=== PATIENT | male | born 1990 | race Caucasian/White ===

== ENCOUNTER 2023-07-18 14:40 | Outpatient (RCR) | payer BC, SELFPAY ==
--- NOTE | 2023-07-18 15:32 | OTOPEVAL1 ---
Assessment and note entered by Jean-Pierre Jolley, ROSINA/Demetrio, CHT Evaluation Information Assessment Status Evaluation Subjective Information Patient was working out when he felt a sudden shooting pain in the right arm/elbow area that radiated up toward the elbow. This happened about the 1st week of Jun. The pain has mostly subsided, but there has been some lingering discomfort in the elbow. Describes the pain as a dull ache, like he's hit his funny bone. 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 Reported Pain Level Pain Score 2: Self Report Assessment OT Clinical Summary Patient presents to outpatient OT with right elbow pain. 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 Spent a considerable amount of time educating on UE positioning to reduce further repeated compression of the nerve, educated on ulnar nerve flossing, as well as proximal stretching. Plan for the patient to complete this home program x1 month and follow up to assess for progression of his HEP. Plan of Care Interventions Therapeutic Exercise OT Services Indicated Yes Treatment Frequency and Follow up in 1 month Duration These treatments will address the objective and functional deficits as defined above. The patient will be advanced safely and appropriately in order for the patient to progress towards his/her prior level of function. Additional exercises will be introduced and as well as a comprehensive home exercise program upon discharge, if needed, ?to ensure carryover of functional gains achieved in the clinic. This treatment plan has been reviewed and agreement upon by the patient.
--- NOTE | 2023-07-18 15:32 | OPREHPOC ---
Outpatient Therapy Plan of Care This is a Multidisciplinary Plan of Care that may contain components documented by all disciplines (PT, OT, and ST.) OT Problem 1 OT Problem #1 Knowledge Deficit OT Goal 1 Goal 1. Patient to be independent with instructed materials. Target Visit 2 OT Problem 2 OT Problem #2 Pain OT Goal 1 Goal 1. Patient to report no pain in the right UE. Target Visit 2
--- NOTE | 2023-08-13 14:26 | OTOPDC ---
Assessment and note entered by ROSINA Cannon/Demetrio, T Discharge Note 08/13/23 OT Clinical Summary Patient initially referred to OT with right elbow pain. 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 Spent a considerable amount of time educating on UE positioning to reduce further repeated compression of the nerve, educated on ulnar nerve flossing, as well as proximal stretching. Follow up was scheduled for next week, however on the phone today, patient reports that he is doing well, no longer having elbow pain, and does not feel the need to come in for a formal re-assessment. Discharging today.
== END 2023-08-13 15:47 | disposition home or self-care (01) ==
LOC: ANHGOSHOT 14:40
PROVIDERS: PCP Family Medicine; Visit Provider Family Medicine
DX: M25.521 Pain in right elbow (principal)
CPT/HCPCS: 97110; 97166

== ENCOUNTER 2024-01-14 10:17 | Outpatient (CLI) | payer BC, SELFPAY ==
[2024-01-14 18:50] LABS: Basophils Percent Auto 0.4 % (0.2-1.2); Eosinophils Absolute Auto 0.3 K/mm3 (0-0.3); Eosinophils Percent Auto 4.4 % (0-4.4); Hematocrit 51.9 % (42.0-52.0); Hemoglobin 16.7 g/dL (14.0-18.0); Immature Granulocyte Absolute 0.01 K/mm3 (0.00-0.031); Immature Granulocyte Percent A 0.1 % (0-0.5); Lymphocytes Absolute Auto 2.72 K/mm3 (0.9-3.2); Lymphocytes Percent Auto 35.6 % (18.3-44.2); Mean Corpuscular HGB Conc 32.2 g/dl (32-36); Mean Corpuscular Hemoglobin 28.1 pg (26-34); Mean Corpuscular Volume 87.4 fl (80-100); Mean Platelet Volume 11.3 fl (7.4-10.4); Monocytes Absolute Auto 0.7 K/mm3 (0.1-0.6); Monocytes Percent Auto 9.4 % (2.6-8.5); Neutrophils Absolute Auto 3.8 K/mm3 (1.3-6.7); Neutrophils Percent Auto 50.1 % (45.5-73.1); Platelet Count Result 294 k/mm3 (150-375); Red Blood Count 5.94 M/mm3 (4.6-6.20); White Blood Count 7.7 K/mm3 (4.5-10.0)
[2024-01-14 19:00] LABS: Alanine Aminotransferase 97 U/L (6-50); Albumin Level 4.7 g/dL (3.5-5.1); Alkaline Phosphatase 64 U/L (38-126); Anion Gap 5 mmol/L (8-16); Aspartate Amino Transferase 78 U/L (17-59); Bilirubin,Total 1.9 mg/dL (0.2-1.3); Blood Urea Nitrogen 13 mg/dL (9-20); Calcium 9.4 mg/dL (8.4-10.2); Carbon Dioxide 32 mmol/L (22-30); Chloride 102 mmol/L (98-107); Cholesterol 159 mg/dL (0-200); Estimated Glomerular Filt Rate > 60; Glucose 117 mg/dL (65-110); HDL Direct 39 mg/dL; Potassium 4.7 mmol/L (3.4-5.0); Sodium 139 mmol/L (137-145); Triglycerides 115 mg/dL (<150)
[2024-01-14 19:11] LABS: LDL Cholesterol Direct 106 mg/dL
[2024-01-14 19:49] LABS: Vitamin D 25 Hydroxy 62.8 ng/mL
[2024-01-14 20:01] LABS: Creatinine Urine 26.6 mg/dL
[2024-01-14 20:14] LABS: MALB Creatinine Ratio < 22.6 mg/g (0-30); Microalbumin Urine Random < 6.0 mg/L (0-16.7)
[2024-01-14 20:22] LABS: Hemoglobin A1C 6.1 % (<5.7)
== END 2024-01-14 10:18 | disposition home or self-care (01) ==
LOC: ANHGOSHLAB 10:18
PROVIDERS: PCP Family Medicine; Visit Provider Family Medicine
DX: E55.9 Vitamin D deficiency, unspecified (principal); R53.83 Other fatigue; Z13.220 Encounter for screening for lipoid disorders; Z13.228 Encounter for screening for other metabolic disorders; E11.9 Type 2 diabetes mellitus without complications
CPT/HCPCS: 36415; 80053; 80061; 82043; 82306; 83036; 85025

== ENCOUNTER 2024-01-31 10:15 | Outpatient (CLI) | payer BC, SELFPAY ==
--- NOTE | ~2024-01-31 | US_ITS ---
US abdomen limited INDICATION: Abnormal levels of serum enzymes PROCEDURE: Realtime right upper abdominal ultrasound. COMPARISON: No prior studies for comparison. FINDINGS: The pancreas is normal without focal mass or pancreatic ductal dilation. Echotexture is in creased, consistent with fatty infiltration. There is normal directional flow in the portal vein. There are gallstones. Common bile duct measures 3 mm. No sonographic Grace's sign. IMPRESSION: 1: Cholelithiasis. 2: Fatty infiltration of the liver. Reviewed, dictated and finalized at location B.
== END 2024-01-31 10:16 ==
LOC: MICIMG 10:15
PROVIDERS: PCP Family Medicine; Visit Provider Family Medicine
DX: K80.20 Calculus of gallbladder without cholecystitis without obstruction (principal); K76.0 Fatty (change of) liver, not elsewhere classified
CPT/HCPCS: 76705

== ENCOUNTER 2024-03-25 18:23 | Emergency (ER) | payer BC, SELFPAY ==
[2024-03-25 18:24] VITALS: BP 143/97; PULSE 105; RESP 18; TEMP 36.4; O2SAT 100
--- NOTE | 2024-03-25 18:40 | ED.GENADULT ---
[facility] - General Adult General Chief complaint: Unspecified Stated complaint: hemorrhoid burst Time Seen by Provider: 03/25/24 18:38 Source: patient Mode of arrival: ambulatory Limitations: no limitations History of Present Illness HPI narrative: This is a 33-year-old male who presents to the ED with chief complaint of rectal bleeding that occurred today. Patient reports that he had a bowel movement and noticed bright red blood on the toilet paper when he wiped. States that he has several times today and continues to have bright red blood. He reports he has had a hemorrhoid in the past feels that he probably have a hemorrhoid worse today. Denies significant pain but has noticed the swelling for the past few days. Denies fevers, chills diarrhea, constipation, nausea vomiting. Has tried preparation H with minimal relief Related Data Home Medications Medication Instructions Recorded Confirmed cetirizine 10 mg tablet 10 mg PO DAILY PRN 07/09/23 01/21/24 magnesium glycinate 100 mg tablet 100 mg PO DAILY 07/09/23 01/21/24 multivitamin (Daily Multi-Vitamin 1 tablet PO DAILY 07/09/23 01/21/24 tablet) Allergies Allergy/AdvReac Type Severity Reaction Status Date / Time No Known Allergies Allergy Verified 03/25/24 18:23 Review of Systems Review of Systems: All systems as dictated in [facility] Past Medical History Medical History Allergies Diabetes History of frequent headaches Surgical History Surgical History [place] teeth extracted (~2010) Family History Family History Father Skin cancer Hypertension Diabetes mellitus Heart disease Mother Hypertension Diabetes mellitus Lung cancer Grandparent Breast cancer Hypertension Cerebrovascular accident Social History Social History Social History: caffeine 1 cup coffee 5/7 days a week Smoking status: Never smoker Alcohol intake: current Drinks per week: 2 Substance use: never Substance use type: does not use Lack of Transportation: No Lack of Food: Never True Current Housing: I Have Housing Concerned About Future Housing: No Difficulty Paying Gas/Electric Bills: No Difficulty Paying for Meds: No Currently Unemployed: No Education: Bachelor's Degree Difficulty w/ Childcare or Family Care: No Living arrangements: alone Occupation/Education: occupation Additional occupation/education comments: [employer] Gender identity (if verbalized by the patient): Male Agree to blood products: Yes Exam Narrative: GENERAL: Well-appearing, well-nourished, and in no acute distress. HEAD: Normocephalic, atraumatic. EYES: PERRLA and EOMI. ENT: Nares clear, no rhinorrhea or epistaxis. Mucous membranes moist. Oropharynx without tonsillar hypertrophy exudate or other lesions. NECK: Supple. No adenopathy or masses. CHEST: No respiratory distress. Clear to auscultation. No wheezes rales or rhonchi HEART: Regular rate and rhythm. No murmur heard. Normal peripheral pulses. ABDOMEN: Soft, nontender, nondistended, normal active bowel sounds. MSK: Normal range of motion. No edema. SKIN: Warm, dry, no rash. NEURO: Alert and oriented x3. No focal deficits. PSYCH: Normal mood and affect. : Patient deferred rectal exam Course Vital Signs Vital signs: Vital Signs Temperature 97.6 F 03/25/24 18:24 Pulse Rate 105 H 03/25/24 18:24 Respiratory Rate 18 03/25/24 18:24 Blood Pressure 143/97 H 03/25/24 18:24 Pulse Oximetry 100 03/25/24 18:24 Oxygen Delivery Room Air 03/25/24 18:24 Temperature 97.6 F 03/25/24 18:24 Pulse Rate 86 03/25/24 19:13 Respiratory Rate 16 03/25/24 19:13 Blood Pressure 143/97 H 03/25/24 18:24 Pulse Oximetry 100 03/25/24 19:13 Oxygen
[2024-03-25 19:13] VITALS: PULSE 86; RESP 16; O2SAT 100
== END 2024-03-25 19:14 | disposition home or self-care (01) ==
PROVIDERS: Emergency Provider Physician Assistant; PCP Family Medicine
DX: K62.5 Hemorrhage of anus and rectum (principal); E11.9 Type 2 diabetes mellitus without complications; Z79.85 Long-term (current) use of injectable non-insulin antidiabetic drugs; Z79.84 Long term (current) use of oral hypoglycemic drugs
CPT/HCPCS: 99283

== ENCOUNTER 2024-07-24 15:43 | Outpatient (CLI) | payer BC, SELFPAY ==
[2024-07-24 18:29] LABS: Hemoglobin A1C 5.1 % (<5.7)
[2024-07-24 18:30] LABS: Alanine Aminotransferase 42 U/L (6-50); Albumin Level 4.8 g/dL (3.5-5.1); Alkaline Phosphatase 57 U/L (38-126); Anion Gap 12 mmol/L (4-12); Aspartate Amino Transferase 31 U/L (17-59); Bilirubin,Total 2.5 mg/dL (0.2-1.3); Blood Urea Nitrogen 9 mg/dL (9-20); Calcium 9.1 mg/dL (8.4-10.2); Carbon Dioxide 27 mmol/L (22-30); Chloride 98 mmol/L (98-107); Estimated Glomerular Filt Rate > 60; Glucose 77 mg/dL (65-110); Potassium 4.4 mmol/L (3.4-5.0); Sodium 137 mmol/L (137-145)
== END 2024-07-24 15:44 | disposition home or self-care (01) ==
LOC: ANHGOSHLAB 15:43
PROVIDERS: PCP Family Medicine; Visit Provider Family Medicine
DX: E11.9 Type 2 diabetes mellitus without complications (principal); Z13.228 Encounter for screening for other metabolic disorders
CPT/HCPCS: 36415; 80053; 83036

== ENCOUNTER 2024-12-28 10:23 | Outpatient (CLI) | payer BC, SELFPAY ==
--- OUTSIDE RECORDS SUMMARY | 2024-12-28 11:43 | XMS_ITS | Patient Health Summary ---
Author Organization [facility] Address [address] [place] [address] Care Team Providers Care Recharger Name Role Phone Saravanan Meza MD Primary Care Provider [phone] Note from [facility],non-owned Affiliates and Associated Physician Practices is amultiple site organization consisting of ambulatory clinics and hospital sitesin [place], [place], [place] and [place]. This disclosure is being madepursuant to the Care Everywhere program and may not contain all information available regarding this patient. Last updated 18.[facility] Allergies No known active allergies Immunizations * INFLUENZA VACCINE, QUADR. (FLUZONE; FLULAVAL; FLUARIX; AFLURIA QUADRIVALENT; 6MO+), 0.5 ML (IIV4)(Given 10/04/2018) Social History Tobacco Use Types Packs/Day Years Used Date Smoking Tobacco: Never Assessed Sex and Gender Information Value Date Recorded Sex Assigned at Not on file Gender Identity Not on file Sexual Orientation Not on file Care Teams Recharger Relationship Specialty Start Date End Date Saravanan Meza MD [address] [place] [address] PCP - General Family Medicine 10/04/18
--- OUTSIDE RECORDS SUMMARY | 2024-12-28 11:43 | XMS_ITS | Data Portability ---
Author Organization [facility] [employer], Main Office Address [address] [place] [address] Assessment No assessment recorded. Plan of Treatment Reminders Order Date Submit Date Provider Last Modified By Organization Details Last Modified Time Details Appointments None recorded. Lab hemoglobin A1C, fingerstick 2022 023 [facility] [address], [place], [address], 3 10:10:56 microalbumi n, urine 2022 023 [facility] (Lab), [address] [place], [address], 3 14:20:22 lipid panel, serum 2022 023 [facility] (Lab), [address] [place], [address], 3 13:42:54 CMP, serum or plasma 2022 023 [facility] (Lab), [address] [place], [address], 3 13:43:06 Referral None recorded. Procedures None recorded. Surgeries None recorded. Imaging None recorded. Medication Orders None recorded. Patient TargetsNo targets recorded. Patient InstructionsNo instructions recorded. Reason for Referral None Reported. Results Created Date Observation Date Name Description Value Unit Range Abnormal Flag Note LastModifiedBy Organization Detail LastModifiedTime 01/13/20 22 01/12/2022 hemog lobin A1C, finge rstic k HgbA1C 14% Not Available [facility] [address], [place], [address], 01/12/2022 11:40:31 07/17/20 22 07/17/2022 COMPR EHENS ALLEN METAB OLIC PANEL sodium 139 mmol/ L 137-14 5 Not Available [facility] (Lab) [address] [place], [address], 07/17/2022 13:14:52 07/17/20 22 07/17/2022 COMPR EHENS ALLEN METAB OLIC PANEL potassium 4.7 mmol/ L 3.5-5. 1 Not Available [facility] (Lab) [address] [place], [address], 07/17/2022 13:14:52 07/17/20 22 07/17/2022 COMPR EHENS ALLEN METAB OLIC PANEL chloride 102 mmol/ L 98-107 Not Available [facility] (Lab) [address] [place], [address], 07/17/2022 13:14:52 07/17/20 22 07/17/2022 COMPR EHENS ALLEN METAB OLIC PANEL carbon dioxide 26 mmol/ L 22-30 Not Available [facility] (Lab) [address] [place], [address], 07/17/2022 13:14:52 07/17/20 22 07/17/2022 COMPR EHENS ALLEN METAB OLIC PANEL anion gap 15.7 mmol/ L 14-22 Not Available [facility] (Lab) [address] [place], [address], 07/17/2022 13:14:52 07/17/20 22 07/17/2022 COMPR EHENS ALLEN METAB OLIC PANEL glucose 111 mg/dL 70-99 high Not Available [facility] (Lab) [address] [place], [address], 07/17/2022 13:14:52 07/17/20 22 07/17/2022 COMPR EHENS ALLEN METAB OLIC PANEL BUN 11 mg/dL 8-19 Not Available [facility] (Lab) [address] [place], [address], 07/17/2022 13:14:52 07/17/20 22 07/17/2022 COMPR EHENS ALLEN METAB OLIC PANEL creatinine 0.87 mg/dL 0.66-1 .25 Not Available [facility] (Lab) [address], [place], [address], 07/17/2022 13:14:52 07/17/20 22 07/17/2022 COMPR EHENS ALLEN METAB OLIC PANEL GFR >60 Refer ence Range : [place] ge GFR Healt hy Adult : >60 mL/mi n/1.7 3 m2 Chron ic Kidne y Disea se: 15-60 mL/mi n/1.7 3 m2 Kidne y Failu re: <15/m L/min /1.73 m2 www.n iddk. nih.g ov The MDRD study equat ion has not been valid ated in child amina <18 years of age; pregn ant women ; the elder ly >85 years of age; or in some racia l or ethni c subgr oups, such as [facility] nics. Outsi de the valid ated kate eters , estim ated GFR is less accur ate, requi ring clini agnes judgm ent on a case- by-ca se basis . Clini agnes inter preta tion for other races and ages must be made by the clini tashi. The MDRD study equat ion has not been valid ated for the evalu ation of serum creat inine relat ed to nutri douglas l statu s or medic ation usage . For perso ns <18 years of age, a pedia tric GFR calcu lator is avail able on the F websi te: https ://carmen w.rich young.o rg/pr ofess ional s/kdo qi/gf r_cal culat or Not Available [facility] (Lab) [address] [place], [address], 07/17/2022 13:14:52 07/17/20 22 07/17/2022 COMPR EHENS ALLEN METAB OLIC PANEL alkaline phosphatase 57 U/L 38-[address] [facility] (Lab) [address] [place], [address], 07/17/2022 13:14:52 07/17/20 22 07/17/2022 COMPR EHENS ALLEN METAB OLIC PANEL alanine aminotransfe rase 36 U/L 0-50 Not Available [facility] (Lab) [address] [place], [address], 07/17/2022 13:14:52 07/17/20 22 07/17/2022 COMPR EHENS ALLEN METAB OLIC PANEL aspartate aminotransfe rase 26 U/L 15-46 Not Available [facility] (Lab) [address] [place], [address], 07/17/2022 13:14:52 07/17/20 22 07/17/2022 COMPR EHENS ALLEN METAB OLIC PANEL bilirubin, total 1.40 mg/dL 0.20-1 .30 high Not Available [facility] (Lab) [address] [place], [address], 07/17/2022 13:14:52 07/17/20 22 07/17/2022 COMPR EHENS ALLEN METAB OLIC PANEL calcium 9.4 mg/dL 8.4-10 .2 Not Available [facility] (Lab) [address] [place], [address], 07/17/2022 13:14:52 07/17/20 22 07/17/2022 COMPR EHENS ALLEN METAB OLIC PANEL total protein 7.6 g/dL 6.3-8. 2 Not Available [facility] (Lab) [address] [place], [address], 07/17/2022 13:14:52 07/17/20 22 07/17/2022 COMPR EHENS ALLEN METAB OLIC PANEL albumin 4.8 g/dL 3.4-5. 0 Not Available [facility] (Lab) [address] [place], [address], 07/17/2022 13:14:52 07/17/20 22 07/17/2022 COMPR EHENS ALLEN METAB OLIC PANEL globulin 2.8 g/dL 2.6-4. 2 Not Available [facility] (Lab) [address] [place], [address], 07/17/2022 13:14:52 07/17/20 22 07/17/2022 COMPR EHENS ALLEN METAB OLIC PANEL A/G ratio 1.7 ratio 1.0-2. 0 Not Available [facility] (Lab) [address] [place], [address], 07/17/2022 13:14:52 07/17/20 22 07/17/2022 LIPID PANEL cholesterol 230 mg/dL 140-19 9 high NIH JACY NSUS RECOM MENDA TION FOR RAMONITA STERO L: ADULT CHILD LOW RISK: <200 <170 BORDE RLINE : <200- 239 ----- HIGH RISK: >240 >200 Not Available [facility] (Lab) [address] [place], [address], 07/17/2022 13:14:46 07/17/20 22 07/17/2022 LIPID PANEL triglyceride s 139 mg/dL 0-150 NIH JACY NSUS REPOR T RECOM MENDA TION FOR TRIGL YCERI OLGA: ADULT CHILD LOW RISK: <150 ----- BODER LINE: 150-1 99 ----- HIGH RISK: >200 ----- Not Available [facility] (Lab) [address] [place], [address], 07/17/2022 13:14:46 07/17/20 22 07/17/2022 LIPID PANEL HDL cholesterol 41 mg/dL 40- Not Available [facility] (Lab) [address] [place], [address], 07/17/2022 13:14:46 07/17/20 22 07/17/2022 LIPID PANEL LDL cholesterol, calculated 161 mg/dL 0-130 high NIH JACY NSUS REPOR T RECOM MENDA TIONS FOR LDL: ADULT CHILD LOW RISK <130 <110 (OPTI MAL LDL) <100 ----- BORDE RLINE : 130-1 59 ----- HIGH RISK: >160 >130 A TRIGL YCERI DE RESUL T >400 INVAL IDATE S THE CALCU LATIO N FOR LDL FRACT IONAT ION - THE LDL RESUL T WILL NOT BE REPOR ISABEL. Not Available [facility] (Lab) [address] [place], [address], 07/17/2022 13:14:46 10/16/20 22 10/16/2022 hemog lobin A1C, finge rstic k HgbA1C 5.8 Not Available [facility] [address], [place], [address], 10/16/2022 10:13:42 04/16/20 23 04/16/2023 LIPID PANEL cholesterol 145 mg/dL 140-19 9 NIH JACY NSUS RECOM MENDA TION FOR RAMONITA STERO L: ADULT CHILD LOW RISK: <200 <170 BORDE RLINE : <200- 239 ----- HIGH RISK: >240 >200 Not Available [facility] (Lab) [address] [place], [address], 04/16/2023 13:42:54 04/16/20 23 04/16/2023 LIPID PANEL triglyceride s 107 mg/dL 0-150 NIH JACY NSUS REPOR T RECOM MENDA TION FOR TRIGL YCERI OLGA: ADULT CHILD LOW RISK: <150 ----- BODER LINE: 150-1 99 ----- HIGH RISK: >200 ----- Not Available [facility] (Lab) [address] [place], [address], 04/16/2023 13:42:54 04/16/2004/16/2023 LIPID PANEL HDL cholesterol 39 mg/dL 40- low Not Available [facility] (Lab) [address] [place], [address], 04/16/2023 13:42:54 04/16/2004/16/2023 LIPID PANEL LDL cholesterol, calculated 85 mg/dL 0-130 NIH JACY NSUS REPOR T RECOM MENDA TIONS FOR LDL: ADULT CHILD LOW RISK <130 <110 (OPTI MAL LDL) <100 ----- BORDE RLINE : 130-1 59 ----- HIGH RISK: >160 >130 A TRIGL YCERI DE RESUL T >400 INVAL IDATE S THE CALCU LATIO N FOR LDL FRACT IONAT ION - THE LDL RESUL T WILL NOT BE REPOR ISABEL. Not Available [facility] (Lab) [address] [place], [address], 04/16/2023 13:42:54 04/16/2004/16/2023 COMPR EHENS ALLEN METAB OLIC PANEL sodium 139 mmol/ L 137-14 5 Not Available [facility] (Lab) [address] [place], [address], 04/16/2023 13:43:05 04/16/20 23 04/16/2023 COMPR EHENS ALLEN METAB OLIC PANEL potassium 4.7 mmol/ L 3.5-5. 1 Not Available [facility] (Lab) [address] [place], [address], 04/16/2023 13:43:05 04/16/20 23 04/16/2023 COMPR EHENS ALLEN METAB OLIC PANEL chloride 100 mmol/ L 98-107 Not Available [facility] (Lab) [address] [place], [address], 04/16/2023 13:43:05 04/16/20 23 04/16/2023 COMPR EHENS ALLEN METAB OLIC PANEL carbon dioxide 26 mmol/ L 22-30 Not Available [facility] (Lab) [address] [place], [address], 04/16/2023 13:43:05 04/16/20 23 04/16/2023 COMPR EHENS ALLEN METAB OLIC PANEL anion gap 17.7 mmol/ L 14-22 Not Available [facility] (Lab) [address] [place], [address], 04/16/2023 13:43:05 04/16/20 23 04/16/2023 COMPR EHENS ALLEN METAB OLIC PANEL glucose 109 mg/dL 70-99 high Not Available [facility] (Lab) [address] [place], [address], 04/16/2023 13:43:05 04/16/20 23 04/16/2023 COMPR EHENS ALLEN METAB OLIC PANEL BUN 13 mg/dL 8-19 Not Available [facility] (Lab) [address] [place], [address], 04/16/2023 13:43:05 04/16/20 23 04/16/2023 COMPR EHENS ALLEN METAB OLIC PANEL creatinine 0.88 mg/dL 0.66-1 .25 Not Available [facility] (Lab) [address] [place], [address], 04/16/2023 13:43:05 04/16/20 23 04/16/2023 COMPR EHENS ALLEN METAB OLIC PANEL GFR >60 Refer ence Range : [place] ge GFR Healt hy Adult : >60 mL/mi n/1.7 3 m2 Chron ic Kidne y Disea se: 15-60 mL/mi n/1.7 3 m2 Kidne y Failu re: <15/m L/min /1.73 m2 www.n iddk. nih.g ov The MDRD study equat ion has not been valid ated in child amina <18 years of age; pregn ant women ; the elder ly >85 years of age; or in some racia l or ethni c subgr oups, such as [facility] nics. Outsi de the valid ated kate eters , estim ated GFR is less accur ate, requi ring clini agnes judgm ent on a case- by-ca se basis . Clini agnes inter preta tion for other races and ages must be made by the clini tashi. The MDRD study equat ion has not been valid ated for the evalu ation of serum creat inine relat ed to nutri douglas l statu s or medic ation usage . For perso ns <18 years of age, a pedia tric GFR calcu lator is avail able on the [facility] websi te: https ://carmen young.o rg/pr ofess ional s/kdo qi/gf r_cal culat or Not Available [facility] (Lab) [address] [place], [address], 04/16/2023 13:43:05 04/16/20 23 04/16/2023 COMPR EHENS ALLEN METAB OLIC PANEL alkaline phosphatase 57 U/L 38-[address] [facility] (Lab) [address] [place], [address], 04/16/2023 13:43:05 04/16/20 23 04/16/2023 COMPR EHENS ALLEN METAB OLIC PANEL alanine aminotransfe rase 46 U/L 0-50 Not Available [facility] (Lab) [address] [place], [address], 04/16/2023 13:43:05 04/16/20 23 04/16/2023 COMPR EHENS ALLEN METAB OLIC PANEL aspartate aminotransfe rase 32 U/L 15-46 Not Available [facility] (Lab) [address] [place], [address], 04/16/2023 13:43:05 04/16/20 23 04/16/2023 COMPR EHENS ALLEN METAB OLIC PANEL bilirubin, total 1.80 mg/dL 0.20-1 .30 high Not Available [facility] (Lab) [address] [place], [address], 04/16/2023 13:43:05 04/16/20 23 04/16/2023 COMPR EHENS ALLEN METAB OLIC PANEL calcium 9.0 mg/dL 8.4-10 .2 Not Available [facility] (Lab) [address] [place], [address], 04/16/2023 13:43:05 04/16/20 23 04/16/2023 COMPR EHENS ALLEN METAB OLIC PANEL total protein 7.3 g/dL 6.3-8. 2 Not Available [facility] (Lab) [address] [place], [address], 04/16/2023 13:43:05 04/16/20 23 04/16/2023 COMPR EHENS ALLEN METAB OLIC PANEL albumin 4.2 g/dL 3.4-5. 0 Not Available [facility] (Lab) [address] [place], [address], 04/16/2023 13:43:05 04/16/20 23 04/16/2023 COMPR EHENS ALLEN METAB OLIC PANEL globulin 3.1 g/dL 2.6-4. 2 Not Available [facility] (Lab) [address] [place], [address], 04/16/2023 13:43:05 04/16/20 23 04/16/2023 COMPR EHENS ALLEN METAB OLIC PANEL A/G ratio 1.4 ratio 1.0-2. 0 Not Available [facility] (Lab) [address] [place], [address], 04/16/2023 13:43:05 04/16/20 23 04/16/2023 MICRO ALBUM IN RANDO M URINE microalbumin , urine 18.1 mg/L 0.0-16 .6 high Not Available [facility] (Lab) [address], [place], [address], 04/16/2023 14:20:22 04/16/20 23 04/16/2023 hemog lobin A1C, faviolae rstic k HgbA1C 5.[address] [facility] [address] [place], [place], [address], 04/16/2023 09:11:38 Result Notes None recorded. Problems Name Problem SNOMED Code Status Onset Date Resolution Date Notes Provider Name and Address Organization Details Recorded Time Type 2 diabetes mellitus without complication 094060240 Active 2022 Not Available [facility] 3 11:45:02 Elevated blood-pressur e reading without diagnosis of hypertension 849713021 Active 2022 Not Available [facility] 3 11:45:02 Hyperlipidemi a 81710506 Active 2022 Not Available [facility] 3 11:45:02 Problem Notes None recorded. Medical Equipment None Reported. Medications Name Sig Start Date Stop Date Status Note LastModified by Organization Details LastModified Time atorvastatin 10 mg tablet TAKE 1 TABLET BY MOUTH EVERY DAY active Not Available Not Available No t Available Zyrtec 10 mg tablet Take 1 tablet every day by oral route. 2017 active Not Available Not Available Not Avai lable montelukast 10 mg tablet Take 1 tablet every day by oral route at bedtime. 11/24 completed Not Available Not Available Not Available metformin ER 500 mg tablet,exten ded release 24 hr TAKE 2 TABLETS BY MOUTH EVERY DAY 2023 active Not Available Not Available Not Avai lable Jardiance 25 mg tablet TAKE 1 TABLET BY MOUTH EVERY DAY active Not Available Not Available No t Available Vitals Date Recorded Body mass index (BMI) Body height Oxygen saturation Oxygen saturation in Arterial blood by Pulse oximetry Heart rate Body temperature Body weight Systolic blood pressure Diastolic blood pressure Provider Name and Address Organization Details Last Updated DateTime 2 32.9 kg/m2 180.34 cm 98 % 98 % 83 /min 96.6 [degF] 414765. 8 g 120 mm[Hg] 100 mm[Hg] Not Available [facility] 3 19:44:36 Date Recorded Body mass index (BMI) Body height Oxygen saturation Oxygen saturation in Arterial blood by Pulse oximetry Heart rate Body temperature Body weight Systolic blood pressure Diastolic blood pressure Provider Name and Address Organization Details Last Updated DateTime 2 32.4 kg/m2 180.34 cm 98 % 98 % 100 /min 97.4 [degF] 386663. 43 g 122 mm[Hg] 90 mm[Hg] Not Available [facility] 3 19:44:36 Date Recorded Body mass index (BMI) Body height Oxygen saturation Oxygen saturation in Arterial blood by Pulse oximetry Heart rate Body temperature Body weight Systolic blood pressure Diastolic blood pressure Provider Name and Address Organization Details Last Updated DateTime 2 32.8 kg/m2 180.34 cm 99 % 99 % 90 /min 98.1 [degF] 791712. 21 g 140 mm[Hg] 92 mm[Hg] Not Available [facility] 3 19:44:36 Date Recorded Body mass index (BMI) Body height Oxygen saturation Oxygen saturation in Arterial blood by Pulse oximetry Heart rate Body temperature Body weight Systolic blood pressure Diastolic blood pressure Provider Name and Address Organization Details Last Updated DateTime 2 33.3 kg/m2 180.34 cm 100 % 100 % 94 /min 97.3 [degF] 443502. 58 g 142 mm[Hg] 100 mm[Hg] Not Available [facility] 3 19:44:36 Date Recorded Body height Body mass index (BMI) Body weight Body temperature Heart rate Oxygen saturation Oxygen saturation in Arterial blood by Pulse oximetry Systolic blood pressure Diastolic blood pressure Provider Name and Address Organization Details Last Updated DateTime 3 180.34 cm 33.6 kg/m2 690848. 76 g 97.9 [degF] 101 /min 98 % 98 % 140 mm[Hg] 100 mm[Hg] ADOLPH Mena [place] [facility] 3 09:04:04 Social History Question Answer Notes LastModified by Organizat ion Details LastModified Time Tobacco Smoking Status Never Smoker Not Available [facility] 01/02/2023 19:44:17 What Is Your Level Of Alcohol Consumption? Occasional [id number] Information not available 01/02/2023 What Is Your Level Of Caffeine Consumption? None [id number] Information not available 01/02/2023 What Type Of Diet Are You Following? DIABETIC Low Sugar And Watching Carbs [id number] Information not available 01/02/2023 Do You Use Any Illicit Or Recreational Drugs? No [id number] Information not available 01/02/2023 Sex: Unknown Functional Status None recorded. Mental Status None recorded. Family History Relationship Description Onset Age of this Age Resolved Age Notes LastModified by Organization Details LastModified Time Father Diabetes mellitus [id number] Not available 01/02/2023 19:44:27 Father Stented artery [id number] Not available 01/02/2023 19:44:27 Mother Diabetes mellitus [id number] Not available 01/02/2023 19:44:27 Medical History No medical history recorded. Immunizations Vaccine Type Date Status Note Provider Nam e and Address Organization Details Recorded Time SARS-COV-2 (COVID-19) vaccine, UNSPECIFIED 2 completed Not Available [facility] 04/17/2023 23:31:23 COVID-19, mRNA, LNP-S, PF, 30 mcg/0.3 mL dose 1 completed Not Available [facility] 04/17/2023 23:31:23 COVID-19 vaccine, vector-nr, rS-Ad26, PF, 0.5 mL 1 completed Not Available [facility] 04/17/2023 23:31:23 Past Encounters Encounter ID Performer Location Encounter Start Date Encounter Closed Date Diagnosis/Indication Diagnosis SNOMED-CT Code Diagnosis ICD10 Code Diagnosis Note [id number] [facility] [address] 11/24/2021 00:00:00 11/25/2021 13:02:02 [id number] [facility] [address] 01/12/2022 00:00:00 01/12/2022 15:23:55 [id number] [facility] [place] [address] [place] [address] 04/16/2022 00:00:00 04/16/2022 20:33:39 [id number] [facility] [place] [address] [place] [address] 07/17/2022 00:00:00 07/17/2022 19:38:38 [id number] [facility] [place] [address] [place] [address] 10/16/2022 00:00:00 10/16/2022 11:53:23 [id number] Saravanan Meza MD [facility] [place] [address] [place] [address] 04/16/2023 08:53:10 04/16/2023 09:23:42 Type 2 diabetes mellitus without complication 605495660 E11.9 A1C is 5.7% may stop the jardiance and will recheck in 3 months. Elevated blood-pressure reading without diagnosis of hypertension 678816495 R03.0 Watch salt in diet. monitor away from here. If are high needs to f/u in 3-4 weeks. Hyperlipidemia 19294426 E78.5 Health Concerns Section Related Observation LastModified by Organization Detai ls LastModified Time None Recorded Concern Status LastModified by Organization Details LastModified Time None Recorded Advance Directives Directive None Recorded Payers Encounter Date Sequence Insurance Name Policy Number Policy Harvey Covered Member ID Harvey Member ID Guarantor Name 04/16/2023 1 [place] [id number] Henry Whitt [id number] Henry Whitt Notes Date Note Type Note Provider Name and Address Organization Details Recorded Time 04/16/2023 text/html Here for A1C check. Taking jardiance and metformin. No complaints. His BP is high. No headaches or dizziness. There is fmhx of HTN. His father had stent surgery. Has not had annual wellness visit. Needs this done Saravanan Meza MD [address] [facility], [address], [place], [address], [place] [facility] 04/16/2023 18:10:27
--- OUTSIDE RECORDS SUMMARY | 2024-12-28 11:43 | XMS_ITS | Referral Summary ---
Author Organization [facility] Address [address] [address] Care Team Providers Care Cassandra Developer Name Role Phone Saravanan Meza MD Primary Care Provider [phone] Source Comments [facility],non-owned Affiliates and Associated Physician Practices is amultiple site organization consisting of ambulatory clinics and hospital sitesin [place], [place], [place] and [place]. This disclosure is being madepursuant to the Care Everywhere program and may not contain all information available regarding this patient. Last updated 18.[facility] [employer] Allergies No known active allergies Immunizations Name Administration Dates Next Due INFLUENZA VACCINE, QUADR. (F LUZONE; FLULAVAL; FLUARIX; AFLURIA QUADRIVALENT; 6MO+), 0.5 ML (IIV4) 10/04/2018 Social History Tobacco Use Types Packs/Day Years Used Date Smoking Tobacco: Never Assessed Sex and Gender Information Value Date Recorded Sex Assigned at Not on file Gender Identity Not on file Sexual Orientation Not on file Plan of Treatment Not on file Care Teams Cassandra Developer Relationship Specialty Start Date End Date Saravanan Meza MD [address] [place] [address] [address] [place] [address] PCP - General Family Medicine 10/04/18
--- OUTSIDE RECORDS SUMMARY | 2024-12-28 11:43 | XMS_ITS | Clinical Summary ---
Author Organization [facility] Address [address] [place] [address] Care Team Providers Care Parking Meter Servicer Name Role Phone Saravanan Meza MD Primary Care Provider Source Comments [facility],non-owned Affiliates and Associated Physician Practices is amultiple site organization consisting of ambulatory clinics and hospital sitesin [place], [place], [place] and [place]. This disclosure is being madepursuant to the Care Everywhere program and may not contain all information available regarding this patient. Last updated 18.[facility] Allergies No known active allergies Immunizations Name [...] Orientation Not on file Plan of Treatment Health Maintenance Due Date Last Done Comments HIV SCREENING 2005 HEPATITIS C SCREENING 10/09/2008 DTAP/TDAP/TD VACCINES (1 - Tdap) 2009 HEPATITIS B VACCINE (1 of 3 - 19+ 3-dose series) 2009 COVID-19 VACCINE ( - 2023-2 5 season) 2024 INFLUENZA VACCINE (#1) 2024 10/04/2018 DEPRESSION SCREENING 11/04/2024 ZOSTER VACCINE (1 of 2) 2040 HIB VACCINE Aged Out No longer eligi ble based on patient's age to complete this topic HPV VACCINE Aged Out No longer eligi ble based on patient's age to complete this topic MENINGOCOCCAL (Group B) VACCINE Aged Out No longer eligible based on patient's age to complete this topic MENINGOCOCCAL VACCINE Aged Out No anselmo román eligible based on patient's age to complete this topic PNEUMOCOCCAL VACCINE Aged Out No long er eligible based on patient's age to complete this topic Care Teams Parking Meter Servicer Relationship Specialty Start Date End Date Saravanan Meza MD [facility] [place] [id number] PCP - General Family Medicine 10/04/18
[2024-12-28 12:14] LABS: Alanine Aminotransferase 18 U/L (6-50); Albumin Level 4.4 g/dL (3.5-5.1); Alkaline Phosphatase 60 U/L (38-126); Anion Gap 10 mmol/L (4-12); Aspartate Amino Transferase 45 U/L (17-59); Bilirubin,Total 2.1 mg/dL (0.2-1.3); Blood Urea Nitrogen 9 mg/dL (9-20); Calcium 8.9 mg/dL (8.4-10.2); Carbon Dioxide 28 mmol/L (22-30); Chloride 102 mmol/L (98-107); Cholesterol 200 mg/dL (0-200); Estimated Glomerular Filt Rate > 60; Glucose 79 mg/dL (65-110); HDL Direct 46 mg/dL; Potassium 4.3 mmol/L (3.4-5.0); Sodium 140 mmol/L (137-145); Triglycerides 64 mg/dL (<150)
[2024-12-28 12:25] LABS: LDL Cholesterol Direct 115 mg/dL
[2024-12-28 12:28] LABS: Hematocrit 46.5 % (42.0-52.0); Hemoglobin 15.5 g/dL (14.0-18.0); Mean Corpuscular HGB Conc 33.3 g/dl (32-36); Mean Corpuscular Volume 84.1 fl (80-100); Mean Platelet Volume 11.6 fl (7.4-10.4); Platelet Count Result 280 k/mm3 (150-375); Red Blood Count 5.53 M/mm3 (4.6-6.20); Red Cell Distribution Width 12.8 % (11.5-14.5); White Blood Count 5.8 K/mm3 (4.5-10.0)
[2024-12-28 12:34] LABS: Hemoglobin A1C 4.8 % (<5.7)
== END 2024-12-28 10:24 | disposition home or self-care (01) ==
PROVIDERS: Visit Provider Nurse Practitioner Family
DX: R17 Unspecified jaundice (principal); Z76.89 Persons encountering health services in other specified circumstances; I10 Essential (primary) hypertension; E11.9 Type 2 diabetes mellitus without complications
CPT/HCPCS: 36415; 80053; 80061; 83036; 85027